=== PATIENT | female | born 1985 | race Caucasian/White ===

== ENCOUNTER 2016-07-01 07:12 | Emergency (ER) | payer OTHER ==
[2016-07-01 10:11] LABS: BUN/CREATININE RATIO 16 (0-10)
[2016-07-01 11:46] LABS: HEMOGLOBIN 16.3 gm/dl (12.3-15.3); RED BLOOD COUNT 5.49 M/UL (4.00-5.10); WHITE BLOOD COUNT 8.6 K/UL (4.5-11.0)
== END 2016-07-01 15:00 | disposition home or self-care (01) ==
LOC: ER1 07:12
PROVIDERS: Physician Assistant
DX: F23 Brief psychotic disorder (principal); I10 Essential (primary) hypertension; F31.9 Bipolar disorder, unspecified; F17.200 Nicotine dependence, unspecified, uncomplicated; Z88.0 Allergy status to penicillin; Z79.899 Other long term (current) drug therapy
CPT/HCPCS: 36415; 80053; 80307; 81001; 84703; 85025; 87086; 93005; 96372; 99284; G0480; J3486

== ENCOUNTER 2016-11-01 22:24 | Emergency (ER) | payer OTHER | END 2016-11-02 01:25 | disposition home or self-care (01) | LOC: ER1 22:24 | DX: I10 Essential (primary) hypertension (principal); F31.9 Bipolar disorder, unspecified; F20.9 Schizophrenia, unspecified; F17.210 Nicotine dependence, cigarettes, uncomplicated; Z88.0 Allergy status to penicillin; Z88.8 Allergy status to other drugs, medicaments and biological substances; Z79.899 Other long term (current) drug therapy | CPT/HCPCS: 99283 ==

== ENCOUNTER 2016-11-02 08:04 | Emergency (ER) | payer OTHER ==
[2016-11-02 09:35] LABS: HEMOGLOBIN 14.3 gm/dl (12.3-15.3); RED BLOOD COUNT 4.75 M/UL (4.00-5.10); WHITE BLOOD COUNT 7.2 K/UL (4.5-11.0)
[2016-11-02 10:05] LABS: BUN/CREATININE RATIO 15 (0-10)
== END 2016-11-02 14:00 | disposition home or self-care (01) ==
LOC: ER1 08:04
PROVIDERS: Emergency Medicine
DX: R44.3 Hallucinations, unspecified (principal); I10 Essential (primary) hypertension; F17.200 Nicotine dependence, unspecified, uncomplicated; Z88.0 Allergy status to penicillin; Z88.8 Allergy status to other drugs, medicaments and biological substances
CPT/HCPCS: 36415; 80053; 80307; 81001; 84703; 85025; 99284; G0480